=== PATIENT | female | born 1985 | race Caucasian/White ===

== ENCOUNTER 2022-03-20 13:31 | Outpatient (CLI) | payer OTHER, SELFPAY ==
[2022-03-20 17:22] LABS: Albumin* 4.6 g/dL (3.3-5.0); Chloride* 105 mmol/L (96-114)
[2022-03-20 17:23] LABS: Potassium* 4.3 mmol/L (3.6-5.1); Sodium* 140 mmol/L (135-149)
[2022-03-20 17:25] LABS: Alkaline Phosphatase* 57 U/L (40-150); Aspartate Amino Transferase* 36 U/L (12-35); Bilirubin Total* 0.8 mg/dL (0.1-1.5); Blood Urea Nitrogen* 10 mg/dL (5-24); Carbon Dioxide* 26 mmol/L (20-32); Cholesterol* 233 mg/dL (90-199); Creatinine* 0.7 mg/dL (0.5-1.5); Estimated Glomerular Filt Rate 114 ml/min; Glucose* 87 mg/dL (60-115); Total Protein* 8.1 g/dL (6.0-8.3); Triglycerides* 296 mg/dL (40-149)
[2022-03-20 17:26] LABS: Alanine Aminotransferase* 42 U/L (4-35); Calcium* 9.4 mg/dL (8.4-10.6); HDL Cholesterol* 44 mg/dL (>=50); LDL Cholesterol Calculated 130 mg/dL (<100)
== END 2022-03-20 13:32 | disposition home or self-care (01) ==
PROVIDERS: PCP Family Medicine; Visit Provider Family Medicine
DX: I10 Essential (primary) hypertension (principal); E66.9 Obesity, unspecified; Z13.29 Encounter for screening for other suspected endocrine disorder; Z13.6 Encounter for screening for cardiovascular disorders
CPT/HCPCS: 80053; 80061; 84443